=== PATIENT | female | born 1960 | race Caucasian/White ===

== ENCOUNTER 2017-09-27 05:47 | Inpatient (IN) | payer OTHER ==
[~2017-09-27] VITALS: Ht 157.5 cm; Wt 68.2 kg
[2017-09-27 06:30] VITALS: BP 105/69
[2017-09-27] MEDS ORDERED: LACTATED RINGERS 1,000 ML IV SCH (06:40)
[2017-09-27] MEDS ORDERED: THYR30TA PO (06:52)
[2017-09-27] MEDS ORDERED: CHOL500045 PO (06:52)
[2017-09-27] MEDS ORDERED: SPIR25TA3 PO (06:52)
[2017-09-27] MEDS ORDERED: ATOR40TA78 PO (06:52)
[2017-09-27] MEDS ORDERED: LISI5TAB7 PO (06:52)
[2017-09-27] MEDS ORDERED: B COMPLEX (06:52)
[2017-09-27] MEDS ORDERED: MULT-224 PO (06:52)
[2017-09-27] MEDS ORDERED: ASPI-515 PO (06:52)
[2017-09-27] MEDS ORDERED: LIDOCAINE/PF 0.5% ,50ML ONE (07:00)
[2017-09-27] MEDS ORDERED: EPINEPHRINE 1 MG/ML, 1ML ONE (07:01)
[2017-09-27] MEDS ORDERED: VANCOMYCIN 1,000 MG ONE (07:01)
[2017-09-27] MEDS ORDERED: THROMBIN 5,000 UNIT VIAL TP ONE ×2 (07:01→08:47)
[2017-09-27] MEDS ORDERED: REMIFENTANIL 1 MG ONE ×2 (07:27)
[2017-09-27] MEDS ORDERED: KETAMINE 10 MG/ML, 20ML ONE (07:27)
[2017-09-27] MEDS ORDERED: LIDOCAINE-MPF 2% ,5ML ONE ×2 (07:32→09:23)
[2017-09-27] MEDS ORDERED: FENTANYL PF 100 MCG/2ML ONE ×2 (07:37→11:09)
[2017-09-27] MEDS ORDERED: MIDAZOLAM 1 MG/ML, 2ML ONE (07:37)
[2017-09-27] MEDS ORDERED: PROPOFOL 10 MG/ML, 20ML ONE ×4 (07:39→09:22)
[2017-09-27] MEDS ORDERED: LIDOCAINE GEL 2%, 5ML ONE ×2 (07:53→09:22)
[2017-09-27] MEDS ORDERED: EPHEDRINE 50 MG/ML, 1ML ONE ×2 (08:30)
[2017-09-27] MEDS ORDERED: LIDOCAINE 0.5%-EPI 1:200K, 50ML IM ONE (08:47)
[2017-09-27] MEDS ORDERED: METOCLOPRAMIDE 5 MG/ML, 2ML ONE (09:22)
[2017-09-27] MEDS ORDERED: DEXAMETHASONE 4 MG/ML, 1ML ONE (09:22)
[2017-09-27] MEDS ORDERED: ONDANSETRON 2MG/ML, 2ML ONE (09:22)
[2017-09-27] MEDS ORDERED: CEFAZOLIN 1,000 MG ONE ×2 (09:23)
[2017-09-27] MEDS: FENTANYL PF 100 MCG/2ML IV PRN ×2 (11:06→11:45)
[2017-09-27] MEDS ORDERED: HYDROmorphone 2 MG/ML, 1ML ONE (11:09)
[2017-09-27] MEDS: HYDROmorphone 1 MG/ML, 1ML IV PRN ×2 (11:10→11:23)
[2017-09-27] MEDS ORDERED: MIDAZOLAM 1 MG/ML, 2ML IV PRN (11:30)
[2017-09-27] MEDS ORDERED: ONDANSETRON 2MG/ML, 2ML IVPush PRN (11:30)
[2017-09-27] MEDS ORDERED: LABETALOL 5MG/ML, 20ML IV PRN (11:30)
[2017-09-27] MEDS ORDERED: MEPERIDINE/PF 25MG/0.5ML IVPush PRN (11:30)
[2017-09-27] MEDS ORDERED: OXYcodone 5 MG/5 ML ORAL.SOL UDC PO PRN (11:30)
[2017-09-27 12:15] VITALS: BP 100/66
[2017-09-27] MEDS ORDERED: morphine SULFATE 10 MG/ML, 1ML IV PRN (13:00)
[2017-09-27] MEDS ORDERED: MAGNESIUM HYDROXIDE 8%, 30ML UDC PO PRN (13:00)
[2017-09-27] MEDS ORDERED: BISACODYL 10 MG SUPP PR PRN (13:00)
[2017-09-27] MEDS: METOCLOPRAMIDE 5 MG/ML, 2ML IVPush PRN (13:03)
[2017-09-27] MEDS: D5%-0.9% NACL+KCL 20MEQ 1,000 ML IV SCH (14:09)
[2017-09-27] MEDS: PROMETHAZINE 25 MG/ML, 1ML IM PRN ×2 (14:14→20:16)
[2017-09-27] MEDS: HYDROcodone/APAP 5/325 TABLET PO PRN ×2 (15:31→20:05)
[2017-09-27] MEDS: OMEPRAZOLE 20 MG CAPSULE.DR PO SCH (17:00)
[2017-09-27] MEDS: CEFAZOLIN PMX 1GM/50ML 50 ML IVPB SCH (17:27)
[2017-09-27] MEDS ORDERED: LISINOPRIL MC SCH (18:30)
[2017-09-27] MEDS ORDERED: SPIRONOLACTONE MC SCH (18:30)
[2017-09-27 19:20] VITALS: BP 103/65
[2017-09-27] MEDS ORDERED: ALBUTEROL SULFATE 2.5 MG/3 ML NPPB PRN (19:30)
[2017-09-27] MEDS ORDERED: ATORVASTATIN 40 MG TABLET PO SCH (21:00)
[2017-09-27 23:36] VITALS: BP 96/52
[2017-09-27] MEDS: HYDROcodone/APAP 10/325 MG TABLET PO PRN (23:55)
[2017-09-28] MEDS: CEFAZOLIN PMX 1GM/50ML 50 ML IVPB SCH (01:04)
[2017-09-28] MEDS: D5%-0.9% NACL+KCL 20MEQ 1,000 ML IV SCH ×2 (01:04→10:57)
[2017-09-28 02:50] VITALS: BP 106/58
[2017-09-28] MEDS: HYDROcodone/APAP 10/325 MG TABLET PO PRN ×2 (05:30→09:29)
[2017-09-28] MEDS ORDERED: THYROID 30 MG TABLET PO SCH (06:00)
[2017-09-28 07:48] VITALS: BP 106/65
[2017-09-28] MEDS: OMEPRAZOLE 20 MG CAPSULE.DR PO SCH (07:52)
[2017-09-28] MEDS ORDERED: LISINOPRIL 5 MG TABLET PO SCH ×3 (09:00)
[2017-09-28] MEDS ORDERED: SPIRONOLACTONE 25 MG TABLET PO SCH (09:00)
[2017-09-28] MEDS ORDERED: SENNA/DOCUSATE TABLET PO SCH (09:00)
[2017-09-28] MEDS: METOCLOPRAMIDE 5 MG/ML, 2ML IVPush PRN (09:35)
[2017-09-28 11:18] VITALS: BP 113/63
== END 2017-09-28 12:49 | disposition home or self-care (01) | DRG 518 ==
LOC: ORIP 05:47 → 4NOR 12:15 → DCLOUNGE 09-28 12:33
PROVIDERS: ADMIT Orthopaedic Surgery Orthopaedic Surgery of the Spine; ATTEND Orthopaedic Surgery Orthopaedic Surgery of the Spine
PROC: 0RR30JZ Replacement of Cervical Vertebral Disc with Synthetic Substitute, Open Approach (ICD-10-PCS; 2017-09-27)
PROC: 0RB30ZZ Excision of Cervical Vertebral Disc, Open Approach (ICD-10-PCS; 2017-09-27)
PROC: 0RR30JZ Replacement of Cervical Vertebral Disc with Synthetic Substitute, Open Approach (ICD-10-PCS; 2017-09-27)
PROC: 0RB30ZZ Excision of Cervical Vertebral Disc, Open Approach (ICD-10-PCS; principal; 2017-09-27 07:30)
DX: M48.02 Spinal stenosis, cervical region (principal); M47.12 Other spondylosis with myelopathy, cervical region; M47.22 Other spondylosis with radiculopathy, cervical region; Z90.710 Acquired absence of both cervix and uterus; E03.9 Hypothyroidism, unspecified; E53.8 Deficiency of other specified B group vitamins; E78.2 Mixed hyperlipidemia; F17.210 Nicotine dependence, cigarettes, uncomplicated; G47.33 Obstructive sleep apnea (adult) (pediatric); I10 Essential (primary) hypertension; I25.10 Atherosclerotic heart disease of native coronary artery without angina pectoris; I25.2 Old myocardial infarction; J44.9 Chronic obstructive pulmonary disease, unspecified; M79.7 Fibromyalgia; K21.9 Gastro-esophageal reflux disease without esophagitis; M41.9 Scoliosis, unspecified; Z79.82 Long term (current) use of aspirin; Z79.899 Other long term (current) drug therapy; Z82.49 Family history of ischemic heart disease and other diseases of the circulatory system; Z82.5 Family history of asthma and other chronic lower respiratory diseases; Z85.828 Personal history of other malignant neoplasm of skin; Z83.3 Family history of diabetes mellitus; Z87.11 Personal history of peptic ulcer disease
CPT/HCPCS: 72040; 95938; 95941; C1713; J0171; J0690; J1100; J1170; J2001; J2250; J2405; J2550; J2704; J3010; J3370; J3490; C1762; J2270; J2765; J3480; J7120